=== PATIENT | male | born 1990 | race Caucasian/White ===

== ENCOUNTER 2021-12-03 18:38 | Emergency (ER) | payer OTHER ==
[~2021-12-03] VITALS: Ht 188 cm; Wt 133.8 kg
[2021-12-03 19:02] LABS: BASOPHILS ABSOLUTE AUTO 0.06 K/mm3 (0.00-0.23); BASOPHILS PERCENT AUTO 1 % (0-2); EOSINOPHILS ABSOLUTE AUTO 0.04 K/mm3 (0.00-0.68); EOSINOPHILS PERCENT AUTO 1 % (0-6); Hemoglobin 16.6 g/dL (13.5-17.5); IMMATURE GRAN ABSOLUTE AUTO 0.03 K/mm3 (0.00-0.10); IMMATURE GRAN PERCENT AUTO 0 % (0-1); LYMPHOCYTES ABSOLUTE AUTO 0.34 K/mm3 (0.84-5.20); LYMPHOCYTES PERCENT AUTO 4 % (21-46); MONOCYTES ABSOLUTE AUTO 0.93 K/mm3 (0.16-1.47); MONOCYTES PERCENT AUTO 12 % (4-13); Mean Corpuscular HGB Conc 34.6 g/dL (31.5-36.5); Mean Corpuscular Volume 87 fL (80-100); Mean Platelet Volume 9.7 fL (9.1-12.4); NEUTROPHILS ABSOLUTE AUTO 6.54 K/mm3 (1.96-9.15); NEUTROPHILS PERCENT AUTO 82 % (41-73); Platelet Count 351 K/mm3 (150-400); RDW Coefficient Variation 12.1 % (11.7-14.2); RDW Standard Deviation 38.6 fL (35.1-46.3); Red Blood Cell Count 5.54 M/mm3 (4.30-5.90); White Blood Cell Count 7.94 K/mm3 (4.00-11.30)
[2021-12-03 19:27] LABS: Alanine Aminotransfer (ALT/SGP 112 U/L (12-78); Alk Phos 95 U/L (50-136); Anion Gap 7 mmol/L (6-16); Aspartate Aminotrans (AST/SGOT 75 U/L (12-37); Bilirubin, Total 0.5 mg/dL (0.1-1.0); Blood Urea Nitrogen 5 mg/dL (8-24); Bun/Creatinine Ratio 5.9 (12.0-20.0); CO2, Blood 27 mmol/L (21-32); Calcium, Blood 9.4 mg/dL (8.5-10.1); Chloride, Blood 98 mmol/L (98-108); Creatinine, Blood 0.85 mg/dL (0.60-1.20); Globulin, Blood 4.1 g/dL (2.2-4.0); Glomerular Filtration Rate >60 (60-); Glucose, Blood 132 mg/dL (70-99); Potassium, Blood 3.8 mmol/L (3.5-5.5); Sodium, Blood 132 mmol/L (136-145); Total Protein, Blood 8.1 g/dL (6.4-8.2)
[2021-12-03 19:51] LABS: Source, Urine Clean Catch
[2021-12-03 20:16] LABS: Appearance, Urine Clear (Clear); Bilirubin, Urine Neg (Neg); Blood, Urine Neg (Neg); Color, Urine Yellow (P-Yellow); Glucose Qualitative, Urine Neg (Neg); Ketones, Urine 1+ (Neg); Leukocyte Esterase, Urine Neg (Neg); Nitrite, Urine Neg (Neg); Protein, Urine 1+ (Neg); Specific Gravity, Urine 1.005 (1.003-1.022); Urobilinogen, Urine 1+ (Normal)
[2021-12-03] MEDS ORDERED: CYCL10 PO (20:55)
== END 2021-12-03 21:50 | disposition home or self-care (01) ==
LOC: ER 18:38
PROVIDERS: Student in an Organized Health Care Education/Training Program
DX: S39.012A Strain of muscle, fascia and tendon of lower back, initial encounter (principal); S29.012A Strain of muscle and tendon of back wall of thorax, initial encounter; J39.9 Disease of upper respiratory tract, unspecified; J45.909 Unspecified asthma, uncomplicated; F17.220 Nicotine dependence, chewing tobacco, uncomplicated; X58.XXXA Exposure to other specified factors, initial encounter
CPT/HCPCS: 74176; 80053; 85025; 96374; 99284-25; A9270; J1885

== ENCOUNTER 2023-02-13 18:23 | Emergency (ER) | payer OTHER ==
[~2023-02-13] VITALS: Ht 188 cm; Wt 125.6 kg
[~2023-02-13 18:23] MED LIST: ALBU90OI; CYCL10 PO; FLUT1DIS2 INH; LEVE500 PO; Norco 5-325 Ta1 EACH PO
[2023-02-13 18:42] LABS: BASOPHILS ABSOLUTE AUTO 0.04 K/mm3 (0.00-0.23); BASOPHILS PERCENT AUTO 0 % (0-2); EOSINOPHILS ABSOLUTE AUTO 0.29 K/mm3 (0.00-0.68); EOSINOPHILS PERCENT AUTO 3 % (0-6); Hematocrit 39.5 % (37.0-53.0); Hemoglobin 13.2 g/dL (13.5-17.5); IMMATURE GRAN ABSOLUTE AUTO 0.02 K/mm3 (0.00-0.10); IMMATURE GRAN PERCENT AUTO 0 % (0-1); LYMPHOCYTES PERCENT AUTO 16 % (21-46); MONOCYTES ABSOLUTE AUTO 0.56 K/mm3 (0.16-1.47); MONOCYTES PERCENT AUTO 6 % (4-13); Mean Corpuscular HGB Conc 33.4 g/dL (31.5-36.5); Mean Corpuscular Volume 84 fL (80-100); Mean Platelet Volume 10.8 fL (9.1-12.4); NEUTROPHILS ABSOLUTE AUTO 7.14 K/mm3 (1.96-9.15); NEUTROPHILS PERCENT AUTO 75 % (41-73); Platelet Count 203 K/mm3 (150-400); RDW Coefficient Variation 12.3 % (11.7-14.2); RDW Standard Deviation 37.2 fL (35.1-46.3); Red Blood Cell Count 4.72 M/mm3 (4.30-5.90); White Blood Cell Count 9.55 K/mm3 (4.00-11.30)
[2023-02-13 19:07] LABS: Albumin/Globulin Ratio 1.3 (0.8-1.8); Bilirubin, Total 0.6 mg/dL (0.1-1.0); Bun/Creatinine Ratio 12.2 (12.0-20.0); Creatinine, Blood 0.82 mg/dL (0.60-1.20); Globulin, Blood 3.1 g/dL (2.2-4.0); Total Protein, Blood 7.1 g/dL (6.4-8.2)
[2023-02-13 20:51] LABS: Source, Urine Clean Catch
[2023-02-13 21:07] LABS: Appearance, Urine Clear (Clear); Bilirubin, Urine Neg (Neg); Blood, Urine Neg (Neg); Glucose Qualitative, Urine Neg (Neg); Ketones, Urine Neg (Neg); Leukocyte Esterase, Urine Neg (Neg); Nitrite, Urine Neg (Neg); Protein, Urine Neg (Neg); Urobilinogen, Urine NORM (Normal)
[2023-02-13 21:27] LABS: U Buprenorphine Screen DETECTED
[2023-02-13 21:28] LABS: U Amphetamine Screen Not Detected; U Barbituate Screen Not Detected; U Benzodiazapine Screen Not Detected; U Cannabinoids Screen Not Detected; U Cocaine Screen Not Detected; U Methadone Screen Not Detected; U Methamphetamine Screen Not Detected; U Opiates Screen Not Detected; U Oxycodone Screen Not Detected; U Phencyclidine Screen Not Detected; U Propoxyphene Screen Not Detected
[2023-02-13 21:29] LABS: Color, Urine Pale Yellow (P-Yellow)
[2023-02-13] MEDS ORDERED: Amoxicillin500 MG PO (22:29)
[2023-02-13 22:56] VITALS: BP 125/86
== END 2023-02-13 23:00 | disposition home or self-care (01) ==
LOC: ER 18:23
PROVIDERS: Emergency Medicine
DX: J18.9 Pneumonia, unspecified organism (principal); G40.909 Epilepsy, unspecified, not intractable, without status epilepticus; Z88.8 Allergy status to other drugs, medicaments and biological substances; Z79.899 Other long term (current) drug therapy; J45.909 Unspecified asthma, uncomplicated; F17.220 Nicotine dependence, chewing tobacco, uncomplicated
CPT/HCPCS: 71046; 80053; 81003; 84145; 85025; 94664; 96365; 99284-25; A9270; J0696; J7030

== ENCOUNTER 2024-02-09 11:58 | Emergency (ER) | payer OTHER ==
[~2024-02-09] VITALS: Ht 188 cm; Wt 130.6 kg
[~2024-02-09 11:58] MED LIST changes: +Amoxicillin500 MG PO
[2024-02-09 14:17] LABS: BASOPHILS ABSOLUTE AUTO 0.01 K/mm3 (0.00-0.23); BASOPHILS PERCENT AUTO 0 % (0-2); EOSINOPHILS ABSOLUTE AUTO 0.24 K/mm3 (0.00-0.68); EOSINOPHILS PERCENT AUTO 5 % (0-6); Hematocrit 42.1 % (37.0-53.0); Hemoglobin 13.9 g/dL (13.5-17.5); IMMATURE GRAN ABSOLUTE AUTO 0.01 K/mm3 (0.00-0.10); IMMATURE GRAN PERCENT AUTO 0 % (0-1); LYMPHOCYTES ABSOLUTE AUTO 0.94 K/mm3 (0.84-5.20); LYMPHOCYTES PERCENT AUTO 20 % (21-46); MONOCYTES ABSOLUTE AUTO 0.34 K/mm3 (0.16-1.47); MONOCYTES PERCENT AUTO 7 % (4-13); Mean Corpuscular HGB 27.6 pg (26.0-34.0); Mean Corpuscular Volume 84 fL (80-100); Mean Platelet Volume 10.9 fL (9.1-12.4); NEUTROPHILS ABSOLUTE AUTO 3.06 K/mm3 (1.96-9.15); NEUTROPHILS PERCENT AUTO 67 % (41-73); Platelet Count 184 K/mm3 (150-400); RDW Coefficient Variation 12.5 % (11.7-14.2); RDW Standard Deviation 37.7 fL (35.1-46.3); Red Blood Cell Count 5.04 M/mm3 (4.30-5.90)
[2024-02-09 14:32] LABS: Albumin, Blood 3.7 g/dL (3.4-5.0); Albumin/Globulin Ratio 1.1 (0.8-1.8); Bilirubin, Total 0.7 mg/dL (0.1-1.0); Bun/Creatinine Ratio 12.3 (12.0-20.0); Calcium, Blood 8.6 mg/dL (8.5-10.1); Creatinine, Blood 0.65 mg/dL (0.60-1.20); Globulin, Blood 3.3 g/dL (2.2-4.0); Potassium, Blood 3.3 mmol/L (3.5-5.5)
[2024-02-09 15:00] VITALS: BP 130/83
== END 2024-02-09 15:09 | disposition home or self-care (01) ==
LOC: ER 11:58
PROVIDERS: Emergency Medicine
DX: R56.9 Unspecified convulsions (principal); E87.6 Hypokalemia
CPT/HCPCS: 70450; 80053; 85025; 99284-25

== ENCOUNTER 2024-06-03 16:05 | Emergency (ER) | payer OTHER ==
[~2024-06-03] VITALS: Ht 188 cm; Wt 127.0 kg
[2024-06-03 16:18] VITALS: BP 151/99
[2024-06-03] MEDS ORDERED: Amoxicillin/Clavulanate K 875 MG Tab PO ONE ×2 (17:10→19:20)
[2024-06-03] MEDS ORDERED: MethylPREDNISolone Sod Succ 125 MG Vial IM ONE ×2 (17:10→19:20)
[2024-06-03] MEDS ORDERED: Ipratropium/Albuterol SulF 2.5-0.5MG/3 ML Amp INH ONE (17:10)
[2024-06-03] MEDS ORDERED: AMOCLA875 PO (19:21)
[2024-06-03] MEDS ORDERED: Flonase 0.05% N16 GM (19:21)
== END 2024-06-03 19:35 | disposition home or self-care (01) ==
LOC: ER 16:05
DX: J32.9 Chronic sinusitis, unspecified (principal); F17.220 Nicotine dependence, chewing tobacco, uncomplicated; J45.909 Unspecified asthma, uncomplicated; Z79.51 Long term (current) use of inhaled steroids; Z79.899 Other long term (current) drug therapy; Z88.1 Allergy status to other antibiotic agents
CPT/HCPCS: 71046; 87081; 87430; 94640; 94664; 99284-25; A9270; J2919

== ENCOUNTER 2024-09-09 08:12 | Day surgery (SDC) | payer OTHER ==
[~2024-09-09] VITALS: Ht 185.4 cm; Wt 129.5 kg
[~2024-09-09 08:12] MED LIST changes: +AMOCLA875 PO; +BUPRENORPHIN-N1 EAC1 SL; +Benzocaine Oral Spray 0.5ML UD ONE; +Flonase 0.05% N16 GM; +LACOSAMIDE150 M1 PO; +LISI10 PO; +Lactated Ringer's 1,000 ML IV SCH; +Midazolam HCl 1MG / ML 2ML Vial ONE; +PREG150 PO
[2024-09-09 08:31] VITALS: BP 141/97
[2024-09-09] MEDS ORDERED: propofoL 40 ML IV ONE (08:46)
--- NOTE | 2024-09-09 09:14 | NUR ---
09/09/24 0914 Hilary Ocampo CONFIRMED AND REVIEWED H&P, MEDCICATIONS, ALLERGIES, MEDICAL HISTORY, RESPIRATORY HISTORY, VITAL SIGNS, 3-LEAD EKG, CONSENTS, AND PHYSICIAN ORDERS. PATIENT CONFIRMS NPO STATUS AND AGREES WITH SCHEDULED PROCEDURE. MONITOR INTACT WITH CONTINUOUS PULSE OXIMETRY, CAPNOGRAPHY, 3-LEAD EKG, INTERMITTENT BP. SUPPLEMENTAL O2 TO BE TITRATED THROUGHOUT PROCEDURE TO MAINTAIN O2 SATURATION ABOVE 90%. PATIENT DETERMINED TO BE ASA APPROPRIATE FOR PROPOFOL SEDATION PRIOR TO START OF PROCEDURE BY DR. HDEZ.
[2024-09-09 09:27] VITALS: BP 130/88
[2024-09-09 09:30] VITALS: BP 135/85
[2024-09-09 09:45] VITALS: BP 124/74
--- NOTE | 2024-09-09 09:57 | NUR ---
Patient up to Ambulate independently. Gait steady. Discharge instructions reviewed with patient. Patient verbalizes understanding. Copy given to patient to take home. Patient States Post-Procedure ride home has been arranged. Discharged via wheelchair to private car for ride home. PT TOLERATING PO, REPORTS READY TO GO HOME. DR HDEZ REPORTS FOR PT TO KEEP F/U.
== END 2024-09-09 09:59 | disposition home or self-care (01) ==
LOC: ORSCMMR 08:12 → ORD 09:00 → ORSCMMR 09:00
PROVIDERS: Internal Medicine Gastroenterology
PROC: 0DB58ZX Excision of Esophagus, Via Natural or Artificial Opening Endoscopic, Diagnostic (ICD-10-PCS; principal; 2024-09-09 09:00)
PROC: 0DB48ZX Excision of Esophagogastric Junction, Via Natural or Artificial Opening Endoscopic, Diagnostic (ICD-10-PCS; principal; 2024-09-09 09:00)
PROC: 0D758ZZ Dilation of Esophagus, Via Natural or Artificial Opening Endoscopic (ICD-10-PCS; principal; 2024-09-09 09:00)
DX: R13.14 Dysphagia, pharyngoesophageal phase (principal); K20.90 Esophagitis, unspecified without bleeding; G40.909 Epilepsy, unspecified, not intractable, without status epilepticus; I10 Essential (primary) hypertension; Z79.899 Other long term (current) drug therapy
CPT/HCPCS: 88305; 88312; A9270; C1726; J2250; J2704; J7120

== ENCOUNTER 2025-03-09 06:41 | Day surgery (SDC) | payer OTHER ==
[~2025-03-09] VITALS: Ht 188 cm; Wt 130.2 kg
[~2025-03-09 06:41] MED LIST changes: +AMOX-CLAV 875-1 EAC5 PO; -Benzocaine Oral Spray 0.5ML UD ONE; +DEPO-TESTO200 MG/18 IM; -Lactated Ringer's 1,000 ML IV SCH; +Lidocaine HCl 4% 5 ML SDA ONE; -Midazolam HCl 1MG / ML 2ML Vial ONE; +PRED20 PO
[2025-03-09] MEDS ORDERED: Tranexamic Acid 100 ML IV ONE (06:55)
[2025-03-09] MEDS ORDERED: EPINEPhrine HCl 1 MG / ML 30ML Vial ONE ×2 (07:09→11:52)
[2025-03-09] MEDS ORDERED: Lidocaine 2%-Epineph 1:200000 20 ML SDV ONE (07:09)
[2025-03-09] MEDS ORDERED: CLAR500 PO (07:12)
--- NOTE | 2025-03-09 08:17 | NUR ---
03/09/25 0817 Joann Caceres 1000MG PO TYLENOL ADMINISTERED PER DR'S ORDERS. RN TO GO TO PHARMACY TO OBTAIN PO SUBOXONE PER DR'S ORDERS. NO QUESTIONS AT THIS TIME. WARM BLANKETS PROVIDED. CALL LIGHT IN REACH.
[2025-03-09] MEDS ORDERED: Buprenorphine HCL/Naloxone HCL 2-0.5MG 1 EA SL ONE (08:20)
[2025-03-09] MEDS ORDERED: HYDROmorphone HCl/Pf 1MG SYR ONE ×2 (08:23→12:45)
[2025-03-09] MEDS ORDERED: Dexamethasone Sod Phos 10 MG/ML 1ML VIAL ONE (08:24)
[2025-03-09] MEDS ORDERED: Ondansetron HCl 2 MG / ML 2ML Vial ONE (08:24)
[2025-03-09] MEDS ORDERED: FentaNYL Citrate 50 MCG/ML 2 ML Injection ONE ×2 (09:34→12:25)
[2025-03-09] MEDS ORDERED: Albuterol HFA200 ACT/6.7 GM INH ONE (10:58)
[2025-03-09] MEDS ORDERED: Labetalol HCL 5 MG/ML 4ML Injection (Single Dose) ONE (10:58)
[2025-03-09] MEDS ORDERED: Albuterol 2.5 MG/3 ML VIAL ONE ×2 (10:58→12:15)
[2025-03-09] MEDS ORDERED: HydrALAZINE HCl 20 MG / ML 1ML Vial ONE (10:58)
--- NOTE | 2025-03-09 13:09 | NUR ---
03/09/25 3224 Flor Feliciano REPORT RECEIVED FROM NICOLE BURTON. SPOKE WITH MDA ABOUT ORDERS FOR PAIN/ANXIETY. PT ANXIOUS AND REPORTS NEED TO URINATE UPON ARRIVAL TO STEP DOWN. PT GIVEN URINAL AND ASSISTED BY RN. PT PLACED IN RECLINER AFTER ABLE TO URINATE. PT TOLERATED ORAL FLUIDS WELL. PT CONTINUOUSLY GROANING AND REPORTS PAIN 9/10. PT GIVEN PAIN MEDICATIONS PER ANESTHESIA ORDERS. VSS. UPPER AND LOWER DENTURES/PARTIALS RETURNED TO PATIENT AND PATIENT PLACED BOTH IN MOUTH. PT SITTING IN RECLINER, BLOTTING NOSE. MILD BLOODY DRAINAGE. PT TALKING, FOLLOWS COMMANDS AND ANSWERS QUESTIONS.
[2025-03-09] MEDS ORDERED: Midazolam HCl 1MG / ML 2ML Vial ONE (13:21)
[2025-03-09 13:52] VITALS: BP 110/75
== END 2025-03-09 14:46 | disposition home or self-care (01) ==
LOC: ORSCSDS 06:41
PROVIDERS: Otolaryngology
PROC: 09TR8ZZ Resection of Left Maxillary Sinus, Via Natural or Artificial Opening Endoscopic (ICD-10-PCS; principal; 2025-03-09 08:15)
PROC: 09SM0ZZ Reposition Nasal Septum, Open Approach (ICD-10-PCS; principal; 2025-03-09 08:15)
PROC: 09TQ8ZZ Resection of Right Maxillary Sinus, Via Natural or Artificial Opening Endoscopic (ICD-10-PCS; principal; 2025-03-09 08:15)
PROC: 09TL8ZZ Resection of Nasal Turbinate, Via Natural or Artificial Opening Endoscopic (ICD-10-PCS; principal; 2025-03-09 08:15)
DX: J34.2 Deviated nasal septum (principal); J34.3 Hypertrophy of nasal turbinates; J32.8 Other chronic sinusitis; I10 Essential (primary) hypertension; G47.33 Obstructive sleep apnea (adult) (pediatric); J45.909 Unspecified asthma, uncomplicated; Z79.899 Other long term (current) drug therapy; G40.909 Epilepsy, unspecified, not intractable, without status epilepticus; E66.9 Obesity, unspecified; Z68.36 Body mass index [BMI] 36.0-36.9, adult
CPT/HCPCS: 88305; A9270; C2625; J0165; J0360; J0572; J1100; J1171; J2003; J2250; J2405; J2704; J3010; J7120

== ENCOUNTER 2025-03-18 20:08 | Emergency (ER) | payer OTHER ==
[~2025-03-18] VITALS: Ht 188 cm; Wt 129.3 kg
[~2025-03-18 20:08] MED LIST changes: +CLAR500 PO; -Lidocaine HCl 4% 5 ML SDA ONE
[2025-03-18] MEDS ORDERED: Tranexamic Acid 100 ML IV ONE ×2 (20:30→21:10)
[2025-03-18] MEDS ORDERED: Tranexamic Acid 1000 MG/10 ML 10ML Vial (SDV) TOP ONE ×3 (20:40→21:00)
[2025-03-18 21:03] LABS: BASOPHILS ABSOLUTE AUTO 0.05 K/mm3 (0.00-0.23); BASOPHILS PERCENT AUTO 0 % (0-2); EOSINOPHILS ABSOLUTE AUTO 0.24 K/mm3 (0.00-0.68); EOSINOPHILS PERCENT AUTO 2 % (0-6); Hematocrit 39.5 % (37.0-53.0); Hemoglobin 12.9 g/dL (13.5-17.5); IMMATURE GRAN ABSOLUTE AUTO 0.22 K/mm3 (0.00-0.10); IMMATURE GRAN PERCENT AUTO 2 % (0-1); LYMPHOCYTES ABSOLUTE AUTO 3.02 K/mm3 (0.84-5.20); LYMPHOCYTES PERCENT AUTO 21 % (21-46); MONOCYTES ABSOLUTE AUTO 0.93 K/mm3 (0.16-1.47); MONOCYTES PERCENT AUTO 6 % (4-13); Mean Corpuscular HGB Conc 32.7 g/dL (31.5-36.5); Mean Corpuscular Volume 85 fL (80-100); NEUTROPHILS ABSOLUTE AUTO 10.09 K/mm3 (1.96-9.15); NEUTROPHILS PERCENT AUTO 69 % (41-73); NRBC ABSOLUTE 0.00 K/mm3 (0.00-0.02); NRBC Auto 0.0 /100 WBC (0.0-0.2); Platelet Count 341 K/mm3 (150-400); RDW Coefficient Variation 13.2 % (11.7-14.2); RDW Standard Deviation 41.1 fL (35.1-46.3)
[2025-03-18 21:27] LABS: Anion Gap 4.0 mmol/L (3-11); Blood Urea Nitrogen 6.0 mg/dL (8-24); CO2, Blood 31.0 mmol/L (21-32); Calcium, Blood 8.5 mg/dL (8.5-10.1); Chloride, Blood 102.0 mmol/L (98-108); Creatinine, Blood 0.59 mg/dL (0.60-1.20); Glucose, Blood 106.0 mg/dL (70-99); Potassium, Blood 3.4 mmol/L (3.5-5.5); Sodium, Blood 134.0 mmol/L (136-145)
[2025-03-18] MEDS ORDERED: ACET500 PO (22:42)
[2025-03-19 00:22] VITALS: BP 132/83
[2025-03-20] MEDS ORDERED: HYDROCODONE-AC1 EA10 PO (16:58)
== END 2025-03-19 00:55 | disposition home or self-care (01) ==
LOC: ER 20:08
PROVIDERS: Emergency Medicine
DX: R04.0 Epistaxis (principal); I10 Essential (primary) hypertension; J45.909 Unspecified asthma, uncomplicated; Z79.899 Other long term (current) drug therapy; Z88.8 Allergy status to other drugs, medicaments and biological substances; F17.220 Nicotine dependence, chewing tobacco, uncomplicated
CPT/HCPCS: 30903; 80048; 85025; 86850; 86900; 86901; 96374; 99283-25; A9270

== ENCOUNTER 2025-03-20 16:37 | Emergency (ER) | payer OTHER ==
[~2025-03-20] VITALS: Ht 188 cm; Wt 83.9 kg
[~2025-03-20 16:37] MED LIST changes: +ACET500 PO
[2025-03-20 16:45] VITALS: BP 125/93
[2025-03-20] MEDS ORDERED: HYDROCODONE-AC1 EA10 PO (16:58)
== END 2025-03-20 17:02 | disposition home or self-care (01) ==
LOC: ER 16:37
DX: J95.830 Postprocedural hemorrhage of a respiratory system organ or structure following a respiratory system procedure (principal); I10 Essential (primary) hypertension; G40.909 Epilepsy, unspecified, not intractable, without status epilepticus; J45.909 Unspecified asthma, uncomplicated; Z96.89 Presence of other specified functional implants; Z88.8 Allergy status to other drugs, medicaments and biological substances; Z79.52 Long term (current) use of systemic steroids; Z79.899 Other long term (current) drug therapy
CPT/HCPCS: 99281

== ENCOUNTER 2025-04-01 03:47 | Day surgery (SDC) | payer OTHER ==
[~2025-04-01 03:47] MED LIST changes: +HYDROCODONE-AC1 EA10 PO; +Sod Ferric Gluc Complx/Sucrose 125 MG in NS 100 ML IV SCH
[2025-04-01 13:50] VITALS: BP 143/72
== END 2025-04-01 15:14 | disposition home or self-care (01) ==
LOC: ATC 03:47
DX: D50.0 Iron deficiency anemia secondary to blood loss (chronic) (principal); I10 Essential (primary) hypertension; E66.89 Other obesity not elsewhere classified; Z68.36 Body mass index [BMI] 36.0-36.9, adult; Z87.891 Personal history of nicotine dependence; Z88.6 Allergy status to analgesic agent; Z88.8 Allergy status to other drugs, medicaments and biological substances
CPT/HCPCS: 96365; J2916

== ENCOUNTER 2025-04-08 09:57 | Day surgery (SDC) | payer OTHER ==
[2025-04-08 10:01] VITALS: BP 142/84
== END 2025-04-08 11:03 | disposition home or self-care (01) ==
LOC: ATC 09:57
DX: D50.0 Iron deficiency anemia secondary to blood loss (chronic) (principal); F41.9 Anxiety disorder, unspecified; I10 Essential (primary) hypertension; Z87.891 Personal history of nicotine dependence; Z88.6 Allergy status to analgesic agent; Z88.8 Allergy status to other drugs, medicaments and biological substances; Z79.899 Other long term (current) drug therapy
CPT/HCPCS: J2916

== ENCOUNTER 2025-04-22 01:36 | Day surgery (SDC) | payer OTHER ==
[2025-04-22 16:25] VITALS: BP 148/74
== END 2025-04-22 17:28 | disposition home or self-care (01) ==
LOC: ATC 01:36
DX: D50.0 Iron deficiency anemia secondary to blood loss (chronic) (principal); I10 Essential (primary) hypertension; Z87.891 Personal history of nicotine dependence; Z79.899 Other long term (current) drug therapy; Z88.6 Allergy status to analgesic agent; Z88.8 Allergy status to other drugs, medicaments and biological substances
CPT/HCPCS: 96365; J2916

== ENCOUNTER 2025-04-29 01:39 | Day surgery (SDC) | payer OTHER ==
[2025-04-29 15:02] VITALS: BP 142/82
== END 2025-04-29 16:19 | disposition home or self-care (01) ==
LOC: ATC 01:39
DX: D50.9 Iron deficiency anemia, unspecified (principal); I10 Essential (primary) hypertension; G47.33 Obstructive sleep apnea (adult) (pediatric); G89.29 Other chronic pain; G40.909 Epilepsy, unspecified, not intractable, without status epilepticus; J34.2 Deviated nasal septum; J33.9 Nasal polyp, unspecified; E66.9 Obesity, unspecified; Z68.36 Body mass index [BMI] 36.0-36.9, adult; Z87.891 Personal history of nicotine dependence; Z79.890 Hormone replacement therapy; Z79.899 Other long term (current) drug therapy; Z88.6 Allergy status to analgesic agent; Z88.8 Allergy status to other drugs, medicaments and biological substances
CPT/HCPCS: J2916

== ENCOUNTER 2025-05-06 03:41 | Day surgery (SDC) | payer OTHER ==
[2025-05-06 15:19] VITALS: BP 117/77
== END 2025-05-06 16:20 | disposition home or self-care (01) ==
LOC: ATC 03:41
DX: D50.0 Iron deficiency anemia secondary to blood loss (chronic) (principal); I10 Essential (primary) hypertension; G40.909 Epilepsy, unspecified, not intractable, without status epilepticus; J45.40 Moderate persistent asthma, uncomplicated; Z87.891 Personal history of nicotine dependence; Z79.899 Other long term (current) drug therapy; Z88.6 Allergy status to analgesic agent; Z88.8 Allergy status to other drugs, medicaments and biological substances
CPT/HCPCS: 96365; J2916

== ENCOUNTER 2025-05-13 09:37 | Day surgery (SDC) | payer OTHER ==
[2025-05-13 14:51] VITALS: BP 150/75
== END 2025-05-13 15:51 | disposition home or self-care (01) ==
LOC: ATC 09:37
DX: D50.9 Iron deficiency anemia, unspecified (principal); I10 Essential (primary) hypertension; G40.909 Epilepsy, unspecified, not intractable, without status epilepticus; J45.40 Moderate persistent asthma, uncomplicated; E66.89 Other obesity not elsewhere classified; Z87.891 Personal history of nicotine dependence; Z88.8 Allergy status to other drugs, medicaments and biological substances; Z88.6 Allergy status to analgesic agent; Z79.899 Other long term (current) drug therapy
CPT/HCPCS: 96365; J2916